=== PATIENT | female | born 1940 | race Caucasian/White ===

== ENCOUNTER 2016-08-31 07:22 | Day surgery (SDC) | payer MEDICARE, OTHER ==
[~2016-08-31 07:22] MED LIST: PHENYLEPHRINE 2.5% OPHTH 2 ML DROPS ONE
[2016-08-31] MEDS ORDERED: LACTATED RINGERS 500 ML IV ONE (07:26)
[2016-08-31] MEDS ORDERED: PROPARACAINE 0.5% OPHTH DROPS 15 ML OPTH ONE (07:38)
[2016-08-31] MEDS ORDERED: fentaNYL 100 MCG/2 ML VIAL IVP ONE (08:41)
[2016-08-31] MEDS ORDERED: MIDAZOLAM 2 MG/2 ML VIAL IVP ONE (08:41)
[2016-08-31] MEDS ORDERED: EPINEPHrine 1 MG/ML AMP IVP ONE (08:55)
[2016-08-31] MEDS ORDERED: BRIMONIDINE 0.2% OPHTH DROPS 5 ML OPTH ONE (08:55)
[2016-08-31] MEDS ORDERED: CHONDR SULF/HYALURONATE SYRINGE IO ONE (08:55)
[2016-08-31] MEDS ORDERED: BSS/LIDOCAINE/EPINEPHRINE 1 ML SYRINGE IO ONE ×2 (08:56)
[2016-08-31] MEDS ORDERED: TRIAMCIN/MOXIFLOX/VANCO 1 ML VIAL IO ONE (08:56)
== END 2016-08-31 07:23 | disposition home or self-care (01) ==
PROC: 08RJ3JZ Replacement of Right Lens with Synthetic Substitute, Percutaneous Approach (ICD-10-PCS; principal; 2016-08-31 08:30)
DX: H25.811 Combined forms of age-related cataract, right eye (principal); I10 Essential (primary) hypertension; E03.9 Hypothyroidism, unspecified; Z79.82 Long term (current) use of aspirin; Z96.652 Presence of left artificial knee joint; E78.5 Hyperlipidemia, unspecified
CPT/HCPCS: 66984; A9270; V2632

== ENCOUNTER 2016-11-21 15:31 | Outpatient (CLI) | payer MEDICARE, OTHER ==
--- NOTE | 2016-11-23 20:39 | Mammography Report ---
DIGITAL SCREENING MAMMOGRAM: 11/21/2016 CLINICAL INDICATION: A 76-year-old with history of late childbearing, family history of breast cance r, history of benign left breast biopsy for screening. COMPARISON: 11/2015, 11/2014, 11/2013, 07/2012, 11/2010, 07/2009, 07/2008, 06/2007. TECHNIQUE: Routine CC and MLO projections were obtained of the breasts. The breasts again demonstrate heterogeneously dense fibroglandular parenchyma bilaterally. Post-biop sy changes in the left breast are stable. A few punctate, typically benign calcifications are presen t. No suspicious masses, clustered microcalcifications, or regions of architectural distortion are i dentified. IMPRESSION: BENIGN FINDINGS. RECOMMENDATION: ROUTINE ANNUAL SCREENING UNLESS OTHERWISE CLINICALLY INDICATED. BIRADS CATEGORY: 2, BENIGN FINDINGS. STANDARD QUALIFYING STATEMENTS 1. This examination was reviewed with the aid of Computed-Aided Detection (CAD). 2. A negative or benign imaging report should not delay biopsy if clinically suspicious findings are present. Consider surgical consultation if warranted. More than 5% of cancers are not identified b y imaging. 3. Dense breasts may obscure an underlying neoplasm. JOB #: [id number] EXT JOB #:[id number]
== END 2016-11-21 15:32 | disposition home or self-care (01) ==
LOC: DI.S 15:31
PROVIDERS: ATTEND Internal Medicine
DX: Z12.31 Encounter for screening mammogram for malignant neoplasm of breast (principal); Z80.3 Family history of malignant neoplasm of breast
CPT/HCPCS: 77067

== ENCOUNTER 2017-03-29 06:57 | Day surgery (SDC) | payer MEDICARE, OTHER ==
[~2017-03-29 06:57] MED LIST changes: +BRIMONIDINE 0.2% OPHTH DROPS 5 ML ONE; +CYCLOPENTOLATE 1% OPHTH DROPS 2 ML ONE; +KETOROLAC 0.45% OPHTH DROPS ONE; +PROPARACAINE 0.5% OPHTH DROPS 15 ML ONE; +TIMOLOL 0.5% OPHTH DROPS ONE
[2017-03-29] MEDS ORDERED: LACTATED RINGERS 500 ML IV ONE (07:03)
[2017-03-29] MEDS ORDERED: BRIMONIDINE 0.2% OPHTH DROPS 5 ML ONE (07:13)
[2017-03-29] MEDS ORDERED: PROPARACAINE 0.5% OPHTH DROPS 15 ML ONE (07:13)
[2017-03-29] MEDS ORDERED: TIMOLOL 0.5% OPHTH DROPS ONE (07:14)
[2017-03-29] MEDS ORDERED: PROPARACAINE 0.5% OPHTH DROPS 15 ML LEFTEYE ONE (08:11)
[2017-03-29] MEDS ORDERED: TRIAMCIN/MOXIFLOX/VANCO 1 ML VIAL IO ONE ×2 (08:16)
[2017-03-29] MEDS ORDERED: TIMOLOL 0.5% OPHTH DROPS OPTH ONE (08:16)
[2017-03-29] MEDS ORDERED: EPINEPHrine 1 MG/ML AMP IVP ONE (08:16)
[2017-03-29] MEDS ORDERED: CHONDR SULF/HYALURONATE SYRINGE IO ONE (08:16)
[2017-03-29] MEDS ORDERED: BSS/LIDOCAINE/EPINEPHRINE 1 ML SYRINGE IO ONE ×2 (08:16)
[2017-03-29] MEDS ORDERED: BRIMONIDINE 0.2% OPHTH DROPS 5 ML OPTH ONE (08:16)
[2017-03-29] MEDS ORDERED: MIDAZOLAM 2 MG/2 ML VIAL IVP ONE (09:00)
[2017-03-29 09:01] VITALS: BP 111/73
--- NOTE | 2017-03-29 09:44 | OPERATIVE REPORT ---
DATE OF SURGERY: 03/29/2017 00:00:00 PREOPERATIVE DIAGNOSIS: Visually significant cataract, left eye. Cataract surgery was performed on he r right eye on 08/31/2016. POSTOPERATIVE DIAGNOSIS: Visually significant cataract, left eye. Cataract surgery was performed on h er right eye on 08/31/2016. NAME OF PROCEDURE: Phacoemulsification posterior chamber with intraocular lens implant, left eye, wit h laser assist. SURGEON: Redd Acosta MD. ANESTHESIA: Monitored anesthesia care. COMPLICATIONS: None. OPERATIVE INDICATIONS: This is a 76-year-old woman with progressive vision loss in the left eye due t o a 2 to 3+ nuclear sclerotic cataract. Best corrected visual acuity was 20/30 with glare to 20/70 in the left eye. Indications for surgery were overall decrease in vision, difficulty seeing words on Program[employer] e computer screen, difficulty reading, difficulty seeing words or closed captions on TV, difficulty s eeing street signs, difficulty driving in low light or at night, and difficulty driving at night oscar use of head lights from other vehicles. She was consented at length concerning the risks and benefits of cataract surgery, after which she expressed a desire to proceed with surgery. OPERATIVE PROCEDURE: The patient was taken into OR #3 and placed under monitored anesthesia care. A s urgical time-out was conducted confirming the correct patient, correct procedure, and correct surgica l site. She was placed under the LenSx laser and her eye docked to the laser interface. The laser per formed the capsulotomy, lens softening, phaco wounds, arcuate keratotomy incisions. She was then move d to the operating microscope, given topical anesthesia, and prepped and draped in the usual sterile fashion. The eye was entered at the 6- and 3 o'clock positions. Intracameral Shugarcaine was injected into the anterior chamber, followed by Viscoat. Capsulorrhexis flap created by the LenSx laser was r emoved from the anterior chamber. The nucleus was hydrodissected and phacoemulsified. The cortex was evacuated using automated infusion aspiration. Provisc was injected in the capsular bag and a 24.0 di opter intraocular lens was inserted in the bag. Approximately 0.7 mm of triamcinolone, moxifloxacin, and vancomycin was injected subconjunctivally in the superior quadrant for infection and inflammation prophylaxis. I/A was used to evacuate the viscoelastic materials. The eye was inflated to physiologi c pressure using balanced salt solution and found to be watertight. The patient was taken from the op erating room in good condition and given postoperative instructions. JOB #: [id number] EXT JOB #:[id number]
== END 2017-03-29 06:58 | disposition home or self-care (01) ==
LOC: SDS 06:57
PROVIDERS: ATTEND Ophthalmology
PROC: 08RK3JZ Replacement of Left Lens with Synthetic Substitute, Percutaneous Approach (ICD-10-PCS; principal; 2017-03-29 08:00)
DX: H25.12 Age-related nuclear cataract, left eye (principal); I10 Essential (primary) hypertension; Z79.82 Long term (current) use of aspirin
CPT/HCPCS: 66984; A9270; J3490; V2632

== ENCOUNTER 2018-12-19 11:00 | Outpatient (CLI) | payer MEDICARE, OTHER ==
--- NOTE | 2018-12-20 08:53 | Mammography Report ---
Reason: ROUTINE MAMMO Procedure Date: 12/19/2018 Accession Number: [id number] / [id number] Procedure: REG - Screening Mammo Dig Bilat CPT Code: FULL RESULT: EXAM: Screening Mammo Dig Bilat DATE: 12/19/2018 11:22 AM CLINICAL HISTORY: Screening encounter. History of late childbearing. History of benign left breast biopsy. Family history of breast cancer in the mother at the age of 75. TECHNIQUE: (B) - Bilateral CC, laterally exaggerated CC, MLO views were obtained. COMPARISON: 11/21/2016 through 12/11/2013. PARENCHYMAL PATTERN: (A) - The breast(s) demonstrate(s) scattered fibroglandular densities. FINDINGS: Postsurgical changes in the left breast are stable. There are no suspicious masses, calcifications, or areas of distortion. IMPRESSION: Benign findings. BI-RADS category 2. RECOMMENDATION: (ANNUAL) - Recommend routine annual screening mammography. BI-RADS CATEGORY: (2) - Benign Findings. STANDARD QUALIFYING STATEMENTS: 1. This examination was not reviewed with the aid of Computer-Aided Detection (CAD). 2. A negative or benign imaging report should not preclude biopsy if clinically suspicious findings are present. 3. Dense breasts may obscure an underlying neoplasm. 4. This examination was reviewed without the aid of 3D breast imaging (tomosynthesis).
== END 2018-12-19 11:01 | disposition home or self-care (01) ==
LOC: DI 11:00
DX: Z12.31 Encounter for screening mammogram for malignant neoplasm of breast (principal)
CPT/HCPCS: 77067

== ENCOUNTER 2021-04-08 08:00 | Outpatient (CLI) | payer MEDICARE, OTHER | END 2021-04-08 23:59 | disposition home or self-care (01) | LOC: LAB.S 08:00 | PROVIDERS: ATTEND Physician Assistant | DX: R30.0 Dysuria (principal) | CPT/HCPCS: 87077; 87086; 87181 ==

== ENCOUNTER 2021-05-06 08:00 | Outpatient (CLI) | payer MEDICARE, OTHER ==
[2021-05-06 15:26] LABS: BILIRUBIN,URINE NEGATIVE (NEGATIVE); GLUCOSE, URINE (UA) NEGATIVE (NEGATIVE); KETONES,URINE (UA) NEGATIVE (NEGATIVE); LEUKOCYTE ESTERASE, URINE TRACE (NEGATIVE); NITRITE,URINE NEGATIVE (NEGATIVE); OCCULT BLOOD,URINE TRACE-INTA (NEGATIVE); PROTEIN,URINE NEGATIVE (NEGATIVE); UROBILINOGEN,URINE 0.2 (NORMAL) E.U./dL (NORMAL)
[2021-05-06 15:30] LABS: CLARITY,URINE HAZY (CLEAR)
[2021-05-06 15:36] LABS: BACTERIA,URINE Few /HPF (None Seen); RBC,URINE 0-5 /HPF (0-5); SQUAMOUS EPITHELIAL CELL,UR MOD Squamous (<= Few); WBC,URINE 0-3 /HPF (0-5)
== END 2021-05-06 23:59 | disposition home or self-care (01) ==
LOC: LAB.S 08:00
PROVIDERS: ATTEND Physician Assistant Medical
DX: R30.0 Dysuria (principal)
CPT/HCPCS: 81001; 87086

== ENCOUNTER 2022-02-27 08:00 | Outpatient (CLI) | payer MEDICARE, OTHER | END 2022-02-27 23:59 | disposition home or self-care (01) | LOC: LAB.S 08:00 | PROVIDERS: ATTEND Physician Assistant Medical | DX: R30.0 Dysuria (principal) | CPT/HCPCS: 87077; 87086; 87181 ==

== ENCOUNTER 2022-04-17 08:00 | Outpatient (CLI) | payer MEDICARE, OTHER | END 2022-04-17 23:59 | disposition home or self-care (01) | LOC: LAB.S 08:00 | PROVIDERS: ATTEND Registered Nurse | DX: R82.79 Other abnormal findings on microbiological examination of urine (principal); R39.15 Urgency of urination | CPT/HCPCS: 87077; 87086; 87181 ==

== ENCOUNTER 2022-05-12 13:51 | Outpatient (CLI) | payer MEDICARE, OTHER ==
--- NOTE | 2022-05-16 13:00 | Mammography Report ---
BILATERAL DIGITAL SCREENING MAMMOGRAM 3D/2D: 05/12/2022 CLINICAL: Routine screening. Comparison is made to exams dated: 12/19/2018 mammogram, 11/21/2016 mammogram, 12/03/2015 mammogram, 11/11 mammogram, 12/11/2013 mammogram, and 08/07/2012 mammogram - [facility]. There are scattered areas of fibroglandular density in both breasts (category b / 25%-50% glandular t issue). There are benign post operative findings in the left breast. No significant masses, calcifications, or other findings are seen in either breast. There has been no significant interval change. IMPRESSION: BENIGN There is no mammographic evidence of malignancy. A 1 year screening mammogram is recommended. Based on the Tyrer Cuzick model (a risk assessment model) the patients lifetime risk is 4.1% and her 10 year risk is 0.0%. According to the ACR, ACS, and NCCN guidelines, an annual breast MRI exam hitesh g with mammogram is recommended if the patients lifetime risk is 20% or greater. This exam was interpreted at Station ID: [id number]. NOTE: For mammograms, a report in lay terms will be sent to the patient. Approximately 15% of breast malignancies will not be visualized mammographically. In the management of a palpable breast mass, a negative mammogram must not discourage biopsy of a clinically suspicious lesion. Electronically Signed By: Moises Hyman M.D. aty/[email or web address]:05/12/2022 16:46:49 ACR BI-RADS Category 2: Benign Finding(s) 3342F PARENCHYMAL PATTERN: (A) - The breast(s) demonstrate(s) scattered fibroglandular densities. BI-RADS CATEGORY: (2) - 2 RECOMMENDATION: (ANNUAL) - Recommend routine annual screening mammography. [id number] 1 year screening LATERALITY: (B)
== END 2022-05-12 13:52 | disposition home or self-care (01) ==
LOC: DI 13:51
PROVIDERS: ATTEND Physician Assistant
DX: Z12.31 Encounter for screening mammogram for malignant neoplasm of breast (principal)

== ENCOUNTER 2023-01-23 08:00 | Outpatient (CLI) | payer MEDICARE, OTHER | END 2023-01-23 23:59 | disposition home or self-care (01) | LOC: LAB 08:00 | PROVIDERS: ATTEND Physician Assistant | DX: R30.0 Dysuria (principal) | CPT/HCPCS: 87086 ==

== ENCOUNTER 2023-06-04 13:58 | Outpatient (CLI) | payer MEDICARE, OTHER ==
--- NOTE | 2023-06-05 11:05 | Mammography Report ---
BILATERAL DIGITAL SCREENING MAMMOGRAM 3D/2D WITH EXAGGERATED CC: 06/04/2023 CLINICAL: Routine screening. Family history of breast cancer. Comparison is made to exams dated: 05/12/2022 mammogram, 12/19/2018 mammogram, and 11/21/2016 mammogram - [facility]. There are scattered areas of fibroglandular density in both breasts (category b / 25%-50% glandular t issue). There are benign post operative findings in the left breast. No significant masses, calcifications, or other findings are seen in either breast. There has been no significant interval change. IMPRESSION: BENIGN There is no mammographic evidence of malignancy. A 1 year screening mammogram is recommended. Based on the Tyrer Cuzick model (a risk assessment model) the patient's lifetime risk is 1.8% and her 10 year risk is 0.0%. According to the ACR, ACS, and NCCN guidelines, an annual breast MRI exam hitesh g with mammogram is recommended if the patients lifetime risk is 20% or greater. This exam was interpreted at Station ID: [id number]. NOTE: For mammograms, a report in lay terms will be sent to the patient. Approximately 15% of breast malignancies will not be visualized mammographically. In the management of a palpable breast mass, a negative mammogram must not discourage biopsy of a clinically suspicious lesion. Electronically Signed By: Moises [email or web address]/[email or web address]:06/04/2023 17:39:05 ACR BI-RADS Category 2: Benign Finding(s) 3342F PARENCHYMAL PATTERN: (A) - The breast(s) demonstrate(s) scattered fibroglandular densities. BI-RADS CATEGORY: (2) - 2 Mammogram [id number] 1 year screening LATERALITY: (B)
== END 2023-06-04 13:59 | disposition home or self-care (01) ==
LOC: DI.S 13:58
DX: Z12.31 Encounter for screening mammogram for malignant neoplasm of breast (principal); R92.323 Mammographic fibroglandular density, bilateral breasts; Z80.3 Family history of malignant neoplasm of breast